=== PATIENT | female | born 1970 | race Two or more races ===

== ENCOUNTER → 2020-04-29 | Outpatient (CLI) | payer OTHER | END | disposition home or self-care (01) | LOC: OFIC 805 15:15 | PROVIDERS: ATTEND Otolaryngology Otology & Neurotology | DX: H69.81 Other specified disorders of Eustachian tube, right ear (principal); H93.8X1 Other specified disorders of right ear; H92.01 Otalgia, right ear ==

== ENCOUNTER 2021-03-13 06:48 | Day surgery (SDC) | payer OTHER ==
[2021-03-13] MEDS ORDERED: ULTRACET PO (16:18)
[2021-03-13] MEDS ORDERED: NAPROXEN500 MG PO (16:19)
== END 2021-03-13 18:15 | disposition home or self-care (01) ==
LOC: CIR.AMB 06:48
PROVIDERS: ATTEND Obstetrics & Gynecology
DX: N85.2 Hypertrophy of uterus (principal); N73.6 Female pelvic peritoneal adhesions (postinfective); N70.11 Chronic salpingitis; Z20.822 Contact with and (suspected) exposure to COVID-19

== ENCOUNTER 2021-10-16 12:02 | Day surgery (SDC) | payer OTHER ==
[~2021-10-16 12:02] MED LIST: LOSARTAN-HCTZ1 EAC1 PO; MEGESTROL ACETA40 MG PO; NAPROXEN500 MG PO; ULTRACET PO
== END 2021-10-17 00:20 | disposition home or self-care (01) ==
LOC: CIR.AMB 12:02
PROVIDERS: ATTEND Obstetrics & Gynecology
DX: N84.0 Polyp of corpus uteri (principal); I10 Essential (primary) hypertension; I34.1 Nonrheumatic mitral (valve) prolapse; K21.9 Gastro-esophageal reflux disease without esophagitis; Z20.822 Contact with and (suspected) exposure to COVID-19